=== PATIENT | male | born 1960 | race Hispanic/Latino ===

== ENCOUNTER → 2017-12-10 | Outpatient (CLI) | payer OTHER ==
[~2017-12-10] MED LIST: AMLO1CAP12 PO; ASPI-555 PO; CARV3.12 PO; DULA1.5P SQ; FENO134C PO; INSLAN SQ; METF-527 PO; OMEP40CA37 PO; SIMV20TA6 PO
== END | disposition home or self-care (01) ==
LOC: RAH 13:28
PROVIDERS: ATTEND Orthopaedic Surgery
DX: M75.101 Unspecified rotator cuff tear or rupture of right shoulder, not specified as traumatic (principal); M19.011 Primary osteoarthritis, right shoulder
CPT/HCPCS: 73221

== ENCOUNTER 2017-12-25 12:13 | Day surgery (SDC) | payer OTHER ==
[2017-12-24 14:45] VITALS: BP 154/75
[2017-12-24 15:19] LABS: BASOPHILS % (AUTO) 0.6 % (0.0-5.0); EOSINOPHILS % (AUTO) 1.7 % (0.0-8.0); HEMATOCRIT 42.1 % (42-54); LYMPHOCYTES % (AUTO) 37.5 % (21.0-51.0); MEAN CORPUSCULAR HEMOGLOBIN 32.1 pg (27.0-33.0); MEAN CORPUSCULAR VOLUME 91.8 fL (79-99); MONOCYTES % (AUTO) 10.6 % (3.0-13.0); NEUTROPHILS % (AUTO) 49.6 % (40.0-77.0); PLATELET COUNT (AUTO) 285 K/uL (130-400); RED BLOOD CELL COUNT(AUTO) 4.59 MIL/uL (4.50-6.20); RED CELL DISTRIBUTION WIDTH 12.4 % (11.0-15.5); WHITE BLOOD COUNT (AUTO) 7.9 K/uL (4.8-10.8)
[2017-12-24 15:25] LABS: CREATININE 1.1 mg/dL (0.5-1.5); POTASSIUM 4.3 mmol/L (3.5-5.1)
[2017-12-24 15:28] LABS: PARTIAL THROMBOPLASTIN TIME 25.4 SEC (26.3-35.5); PROTHROMBIN TIME 10.5 SEC (9.6-11.6)
[~2017-12-25] VITALS: Ht 172.7 cm; Wt 83.5 kg
[2017-12-25 10:40] LABS: APPEARANCE,URINE Clear (CLEAR); BILIRUBIN,URINE Negative (NEGATIVE); COLOR,URINE Yellow (YELLOW); GLUCOSE, URINE (UA) TRACE mg/dL (NEGATIVE); KETONES,URINE Negative (NEGATIVE); LEUKOCYTE ESTERASE ,URINE Negative (NEGATIVE); NITRATE,URINE Negative (NEGATIVE); OCCULT BLOOD,URINE Negative (NEGATIVE); PROTEIN,URINE Negative (NEGATIVE); UROBILINOGEN,URINE 0.2 mg/dL (0.2-1.0)
[2017-12-25 11:00] LABS: AMORPHOUS SEDIMENT,UR Few /LPF (None Seen); BACTERIA,URINE Rare /HPF (None Seen); RBC,URINE None Seen /HPF (0-1); SQUAMOUS EPITHELIAL CELL,UR None Seen /HPF (0-2); WBC,URINE None Seen /HPF (0-1)
[2017-12-26] VITALS (16 sets, daily range): BP systolic 142–160; BP diastolic 67–85
[2017-12-26] MEDS: CEFAZOLIN SODIUM 1 GM VIAL IVP SCH ×2 (12:30→15:00)
[2017-12-26] MEDS ORDERED: SODIUM CHLORIDE 0.9% 1000ML 1,000 ML IV ONE (12:46)
[2017-12-26] MEDS ORDERED: DEXAMETHASONE SOD PHOSPHATE 10MG/ML 1ML VIAL ONE (14:30)
[2017-12-26] MEDS ORDERED: LIDOCAINE PF 2% 5ML ABBOJECT ONE (14:30)
[2017-12-26] MEDS ORDERED: GLYCOPYRROLATE 0.2 MG/ML 5 ML VIAL ONE (14:30)
[2017-12-26] MEDS ORDERED: FENTANYL CITRATE PF 50 MCG/1 ML 2ML VIAL ONE (14:31)
[2017-12-26] MEDS ORDERED: PROPOFOL 10 MG/ML 20ML VIAL IV ONE (14:31)
[2017-12-26] MEDS ORDERED: MIDAZOLAM HCL 1 MG/ML 2ML VIAL ONE (14:31)
[2017-12-26] MEDS ORDERED: LIDOCAINE HCL/EPINEPHRINE 50 ML VIAL IJ ONE (15:24)
[2017-12-26] MEDS ORDERED: BUPIVACAINE/EPI/PF 0.25% 30ML VIAL IJ ONE (15:24)
[2017-12-26] MEDS ORDERED: EPHEDRINE SULFATE 50 MG/ML AMPULE ONE (15:32)
== END 2017-12-26 18:12 | disposition home or self-care (01) ==
LOC: SUH 12:13 → DAH 12-26 12:12 → SUH 12-26 18:12
PROVIDERS: ATTEND Orthopaedic Surgery
DX: M75.41 Impingement syndrome of right shoulder (principal); M13.811 Other specified arthritis, right shoulder; M75.51 Bursitis of right shoulder; E11.9 Type 2 diabetes mellitus without complications; I10 Essential (primary) hypertension; Z98.890 Other specified postprocedural states; Z79.899 Other long term (current) drug therapy
CPT/HCPCS: 29822; 29824; 36415 ×2; 80048; 81001; 82948 ×2; 85025; 85610; 85730; 86850; 86900; 86901; 86922; 87641; 93005; A4218; A4450; A4565; A4649; A4930; A6204; A6223; J0690; J1040; J1100; J2001; J2250; J2704; J3010; J3490 ×3; J7030 ×2

== ENCOUNTER → 2019-11-24 | Outpatient (CLI) | payer OTHER ==
[~2019-11-24] MED LIST changes: +AMLO-104 PO; -AMLO1CAP12 PO; +OMEP40CA13 PO; -OMEP40CA37 PO; +SIMV-43 PO; -SIMV20TA6 PO
== END | disposition home or self-care (01) ==
LOC: RAH 13:52
PROVIDERS: ATTEND Family Medicine
DX: Z13.6 Encounter for screening for cardiovascular disorders (principal)
CPT/HCPCS: 75571

== ENCOUNTER 2021-04-13 07:25 | Day surgery (SDC) | payer OTHER ==
[2021-04-07 09:48] LABS: BASOPHILS % (AUTO) 0.6 % (0.0-5.0); EOSINOPHILS % (AUTO) 3.4 % (0.0-8.0); HEMATOCRIT 40.5 % (42-54); LYMPHOCYTES % (AUTO) 36.9 % (21.0-51.0); MEAN CORPUSCULAR HEMOGLOBIN 32.2 pg (27.0-33.0); MEAN CORPUSCULAR HGB CONC 35.8 g/dL (32.0-36.0); MONOCYTES % (AUTO) 13.2 % (3.0-13.0); NEUTROPHILS % (AUTO) 45.6 % (40.0-77.0); PLATELET COUNT (AUTO) 205 K/uL (130-400); RED CELL DISTRIBUTION WIDTH 11.8 % (11.0-15.5); WHITE BLOOD COUNT (AUTO) 6.4 K/uL (4.8-10.8)
[2021-04-07 09:56] LABS: CREATININE 0.8 mg/dL (0.5-1.5)
[2021-04-07 09:58] LABS: INR 1.05 (0.85-1.15); PROTHROMBIN TIME 11.4 SEC (9.6-11.6)
[2021-04-07 10:00] LABS: PARTIAL THROMBOPLASTIN TIME 25.4 SEC (26.3-35.5)
[2021-04-09 09:14] VITALS: BP 156/67
[~2021-04-13] VITALS: Ht 167.6 cm; Wt 83.9 kg
[2021-04-13] VITALS (12 sets, daily range): BP systolic 115–162; BP diastolic 6–77
[~2021-04-13 07:25] MED LIST changes: +ALBU90AE IH; -AMLO-104 PO; +AMLO-258 PO; -ASPI-555 PO; +CETI10TA57 PO; -DULA1.5P SQ; -FENO134C PO; +FLUT100B IH; +ICOS1CAP PO; -INSLAN SQ; +INSU100I26 SQ; +LEVO100T12 PO; +LISI10TA24 PO; -METF-527 PO; +MONT10TA32 PO; -OMEP40CA13 PO; +OMEP40CA21 PO; -SIMV-43 PO; +bydureon SQ
[2021-04-13] MEDS ORDERED: 0.9%NACL 1000ML 1,000 ML IV ONE (08:11)
[2021-04-13] MEDS ORDERED: 0.9% NACL 500ML IV.SOLN 500 ML IV SCH (09:00)
[2021-04-13] MEDS ORDERED: UBID1CAP56 PO (10:31)
[2021-04-13] MEDS ORDERED: LIDOCAINE HCL 400MG/20ML VIAL ONE (10:52)
[2021-04-13] MEDS ORDERED: BIVALIRUDIN 250 MG/VIAL IV ONE (10:52)
[2021-04-13] MEDS ORDERED: FENTANYL CITRATE PF 50 MCG/1 ML 2ML VIAL ONE (10:52)
[2021-04-13] MEDS ORDERED: IOHEXOL-350 50ML VIAL IV ONE (10:52)
[2021-04-13] MEDS ORDERED: IOHEXOL 350 MG/ML 100ML INFUS..BTL IV ONE (10:52)
[2021-04-13] MEDS ORDERED: MIDAZOLAM HCL 1 MG/ML 2ML VIAL ONE (10:52)
[2021-04-13] MEDS ORDERED: NITROGLYCERIN 2 MG VIAL IV ONE (10:52)
[2021-04-13] MEDS ORDERED: LABETALOL 20MG SYG IV ONE (11:54)
[2021-04-13] MEDS ORDERED: 0.9%NACL 1000ML 1,000 ML IV SCH (12:30)
[2021-04-13] MEDS ORDERED: METOPROLOL TARTRATE 1 MG/ML 5ML VIAL IV PRN (12:30)
[2021-04-13] MEDS ORDERED: NITROGLYCERIN 0.4 MG SL TAB SL PRN (12:30)
[2021-04-13] MEDS ORDERED: DEXTROSE 50%-WATER 50 ML DISP.SYRIN IV PRN (12:30)
[2021-04-13] MEDS ORDERED: GLUCAGON 1MG KIT 1 MG ML IM PRN (12:30)
[2021-04-13] MEDS ORDERED: INSULIN HUMULIN R 100 UNIT/ML 3ML SQ SCH (16:30)
[2021-04-15] MEDS ORDERED: SEMA7TAB PO (15:46)
[2021-04-15] MEDS ORDERED: ATOR10 PO (15:46)
== END 2021-04-13 17:00 | disposition home or self-care (01) ==
LOC: DAH 07:25
PROVIDERS: ATTEND Internal Medicine Cardiovascular Disease
DX: I25.119 Atherosclerotic heart disease of native coronary artery with unspecified angina pectoris (principal); I11.0 Hypertensive heart disease with heart failure; I50.33 Acute on chronic diastolic (congestive) heart failure; E78.5 Hyperlipidemia, unspecified; E11.9 Type 2 diabetes mellitus without complications; E66.3 Overweight; N52.01 Erectile dysfunction due to arterial insufficiency; F03.90 Unspecified dementia, unspecified severity, without behavioral disturbance, psychotic disturbance, mood disturbance, and anxiety; Z82.49 Family history of ischemic heart disease and other diseases of the circulatory system; Z98.890 Other specified postprocedural states; Z79.890 Hormone replacement therapy; Z79.84 Long term (current) use of oral hypoglycemic drugs; Z79.82 Long term (current) use of aspirin; Z79.01 Long term (current) use of anticoagulants; Z68.29 Body mass index [BMI] 29.0-29.9, adult; Z87.891 Personal history of nicotine dependence
CPT/HCPCS: 36415; 71045; 80048; 82948; 85025; 85610; 85730; 93005; 93458; 93880; A4215; A4216; A4221; A4222; A4223 ×3; A4606; A4663; C1760; C1887; C1894 ×2; J1644; J2250; J3010; J3490 ×2; J7030; Q9965; Q9967 ×2; 96360; 96361; 99156; 99157; J0583